=== PATIENT | female | born 1990 | race Caucasian/White ===

== ENCOUNTER 2019-10-10 10:02 | Emergency (ER) | payer MEDICAID ==
[~2019-10-10] VITALS: Ht 152.4 cm; Wt 89.4 kg
[2019-10-10 10:13] VITALS: Ht 152.4 cm; Wt 89.4 kg
[2019-10-10 10:35] VITALS: BP 129/72
== END 2019-10-10 10:35 | disposition home or self-care (01) ==
LOC: ED 10:02
DX: L50.0 Allergic urticaria (principal)

== ENCOUNTER 2020-06-19 10:29 | Emergency (ER) | payer MEDICAID, SELFPAY ==
[~2020-06-19] VITALS: Ht 149.9 cm; Wt 83.9 kg
[2020-06-19 10:31] VITALS: Ht 149.9 cm; Wt 83.9 kg
[2020-06-19 12:20] VITALS: BP 133/56
== END 2020-06-19 12:20 | disposition home or self-care (01) ==
LOC: ED 10:29
DX: Z20.828 Contact with and (suspected) exposure to other viral communicable diseases (principal); R50.9 Fever, unspecified
CPT/HCPCS: U0003-CS